=== PATIENT | male | born 1980 ===

== ENCOUNTER 2023-01-22 11:46 | Inpatient (IN) | payer OTHER ==
[~2023-01-22] VITALS: Ht 167.6 cm; Wt 81.2 kg
[2023-01-23] MEDS ORDERED: AMLODIPINE-OLM1 EACH PO (13:05)
[2023-01-23] MEDS ORDERED: TENORMIN50 M1 PO (13:06)
[2023-01-23] MEDS ORDERED: LOPI PO (13:06)
[2023-01-23] MEDS ORDERED: CLONAZEPAM0.5 MG PO (13:07)
[2023-01-23] MEDS ORDERED: REMERON30 MG PO (13:07)
[2023-01-23] MEDS ORDERED: [UNRECOGNIZED DRUG - CODE] PO (13:08)
[2023-01-23] MEDS ORDERED: PROBIO PO (13:08)
[2023-01-29] MEDS ORDERED: GEMFIBROZIL600 MG (15:01)
[2023-01-29] MEDS ORDERED: [UNRECOGNIZED DRUG - OTHER] (15:01)
[2023-01-29] MEDS ORDERED: CLORAZEPATE D3.75 MG (15:01)
[2023-01-29] MEDS ORDERED: AMLODIPINE-BEN1 EAC2 (15:01)
[2023-01-29] MEDS ORDERED: VITAMIN D3250 MCG (15:02)
[2023-01-29] MEDS ORDERED: PROBIOTIC1 EAC4 (15:05)
[2023-02-01] MEDS ORDERED: PERCOCET 5-3251 EACH PO (12:38)
[2023-02-01] MEDS ORDERED: HYOSCYAMINE0.125 M1 SL (12:38)
== END 2023-02-01 14:06 | disposition home or self-care (01) | DRG 330 ==
LOC: O/R 01-29 07:29 → SURH 01-29 07:29 → SURG 01-29 12:00 → SURH 01-29 14:41 → SURG 01-29 17:15 → SURH 02-01 14:06
PROVIDERS: Internal Medicine Geriatric Medicine; ADMIT Surgery; ATTEND Surgery
PROC: 0DJD8ZZ Inspection of Lower Intestinal Tract, Via Natural or Artificial Opening Endoscopic (ICD-10-PCS; 2023-01-29)
PROC: 0DTG4ZZ Resection of Left Large Intestine, Percutaneous Endoscopic Approach (ICD-10-PCS; principal; 2023-01-29 17:15)
DX: K50.112 Crohn's disease of large intestine with intestinal obstruction (principal); K92.2 Gastrointestinal hemorrhage, unspecified; I11.9 Hypertensive heart disease without heart failure; D64.9 Anemia, unspecified